=== PATIENT | female | born 1985 | race Hispanic/Latino ===

== ENCOUNTER 2017-02-24 09:16 | Inpatient (IN) | payer OTHER ==
[2017-02-24 09:51] VITALS: BMI 45.6
[2017-02-24] MEDS: Lactated Ringer's 1,000 ML IV SCH ×2 (10:15→15:45)
[2017-02-24 10:32] LABS: BASO % 0.4 % (0.0-2.0); EOS # 0.1 K/uL (0.0-0.7); EOS % 0.8 % (0.0-4.0); HEMATOCRIT 38.3 % (34.0-47.0); LYMPH # 1.6 K/uL (1.0-4.3); LYMPH % 17.9 % (20.0-40.0); MEAN CELL VOLUME 89.5 fl (81.0-99.0); MEAN CORPUSCULAR HEMOGLOBIN 30.1 pg (27.0-31.0); MEAN CORPUSCULAR HGB CONC 33.7 g/dL (33.0-37.0); MEAN PLATELET VOLUME 9.8 fl (7.2-11.7); MONO # 0.6 K/uL (0.0-0.8); MONO % 6.2 % (0.0-10.0); NEUT # 6.8 K/uL (1.8-7.0); NEUT % 74.7 % (50.0-75.0); NRBC % 0.1 % (0.0-0.0); RED CELL DISTRIBUTION WIDTH 14.4 % (11.5-14.5)
--- NOTE | 2017-02-24 11:34 | OBADHP ---
Datetime: 02/24/2017 11:30 Admit Comment, IP Provider: 31-year-old 001 at 37 weeks and 3 days gestational age transferred to the ED due to oligohydramnios on ultrasound today. Patient with a history of prior . Pat ient without complaints at this time. Patient denies any contractions, bleeding, leakage of fluids. P atient reports good movement. records reviewed. course unremarkable. Past medical history none Past surgical history 1 Medications vitamins No known drug allergies Obstetrical history full-term section times one Social history no tobacco, no alcohol, no drugs Physical exam: Refer to physical exam findings Assessment: 31-year-old 001 at 37 weeks 3 days gestational age with oligohydramnios and prior 1. heart tracing reassuring. Plan: Admit to L_D for delivery. Both maternal well-being and well being reassuring at this time. Extremities - PN: Normal Abdomen - PN: Normal Back - PN: Normal Lungs - PN: Normal Heart - PN: Normal Thyroid - PN: Normal HEENT - PN: Normal General - PN: Normal FHR - Baseline A Provider: 130s-140s Contraction Comments Provider: none IP Hx Assessment: The History has been Reviewed and is Current Vital Signs Provider: Reviewed; Within Normal Limits NICHD Variability Prov Fetus A: Moderate 6-25bpm IP Adm Impression: Term, intrauterine ; No Active Labor; Intact Membranes IP Admit Plan: Admit to unit; Initiate Section protocol Datetime: 02/07/2017 02:18 IP Chief Complaint Other: back pain, pelvic pressure Pelvic Type - PN: Adequate Breast - PN: Normal Neurologic - PN: Normal NICHD Accel Fetus A IP Provider: 15X15 Dilatation, Provider: closed Effacement, Provider: thick Station, Provider: -3 Genitourinary Exam: Normal DTRs - PN: Normal Datetime: 02/02/2017 18:34 Presentation-Admit: Vertex Comments, ACOG Physical Exam: Speculum exam no pooling cervix long closed posterior nitrazine negati ve Gestation - Est Wks by US: 34.0 Pool Provider: Negative IP Chief Complaint: Suspected ruptured membranes FHR Category Provider Fetus A: Category I NICHD Decel Fetus A IP Provider: None EGA AdmitDate IP: 34.2
[2017-02-24] MEDS ORDERED: ceFAZolin 2 GM in Sodium Chloride 0.9% 100 ML IVPB ONE (16:00)
[2017-02-24] MEDS ORDERED: ePHEDrine 50 mg/ml Inj ONE (16:35)
[2017-02-24] MEDS ORDERED: Morphine 1 mg/ml preservative-free Inj(Duramorph) ONE (16:36)
[2017-02-24] MEDS ORDERED: Phenylephrine 10 mg/ml Inj ONE (16:36)
--- NOTE | 2017-02-24 16:44 | OBHP ---
Datetime: 02/24/2017 11:30 IP Adm Impression: Term, intrauterine ; No Active Labor; Intact Membranes IP Admit Plan: Admit to unit; Initiate Section protocol Admit Comment, IP Provider: 31-year-old 001 at 37 weeks and 3 days gestational age transferred to the ED due to oligohydramnios on ultrasound today at [facility] Office NAN 2cm.. Patient with a history of prior . Patient without complaints at this time except mild dishcharge watery x 2-3 days. . Patient denies any contractions, bleeding, +FM. records reviewed. course unremar kable. Past medical history none Past surgical history 1 Medications vitamins No known drug allergies Obstetrical history full-term section times one Social history no tobacco, no alcohol, no drugs Physical exam: Refer to physical exam findings Assessment: 31-year-old 001 at 37 weeks 3 days gestational age with oligohydramnios and prior 1. heart tracing reassuring. Plan: Admit to L_D for delivery. Both maternal well-being and well being reassuring at this time. Admit for delivery, repeat cesearsean section npo, ivf anticiitocs or/ansetheia aware Extremities - PN: Normal Abdomen - PN: Normal Back - PN: Normal Lungs - PN: Normal Heart - PN: Normal Thyroid - PN: Normal HEENT - PN: Normal General - PN: Normal FHR - Baseline A Provider: 130s-140s Amniotic Fluid Color, Provider: Clear Membranes, Provider: Ruptured Contraction Comments Provider: none Pool Provider: Positive IP Hx Assessment: The History has been Reviewed and is Current EGA AdmitDate IP: 37.3 Vital Signs Provider: Reviewed; Within Normal Limits IP Indication for Induction: Oligohydramnios IP Chief Complaint: Suspected ruptured membranes NICHD Variability Prov Fetus A: Moderate 6-25bpm NICHD Decel Fetus A IP Provider: None Dilatation, Provider: 1-2 Effacement, Provider: 50 Station, Provider: -3 Datetime: 02/07/2017 02:18 NICHD Accel Fetus A IP Provider: [id number]
[2017-02-24] MEDS ORDERED: Oxycodone/Acetaminophen 5/325 mg Tab PO PRN ×4 (16:53→20:40)
[2017-02-24] MEDS ORDERED: Oxytocin 30 units/LR 500ML 500 ML IV SCH (18:30)
[2017-02-24] MEDS ORDERED: DiphenhydrAMINE 50 mg/ml Inj IVP PRN ×2 (18:37→20:40)
[2017-02-24] MEDS ORDERED: Simethicone 80 mg Chewtab PO SCH (22:00)
[2017-02-24] MEDS: Simethicone 80 mg Chewtab PO SCH (22:05)
[2017-02-25] MEDS: Simethicone 80 mg Chewtab PO SCH ×4 (04:13→22:02)
[2017-02-25] MEDS: Lactated Ringer's 1,000 ML IV SCH ×2 (04:15→05:39)
[2017-02-25 07:33] LABS: MEAN CELL VOLUME 90.9 fl (81.0-99.0); MEAN CORPUSCULAR HEMOGLOBIN 30.1 pg (27.0-31.0); MEAN CORPUSCULAR HGB CONC 33.2 g/dL (33.0-37.0); RED CELL DISTRIBUTION WIDTH 14.2 % (11.5-14.5); WHITE BLOOD COUNT 10.1 K/uL (4.8-10.8)
[2017-02-25 07:49] LABS: BLOOD UREA NITROGEN 7 mg/dl (7-17); CALCIUM 8.7 mg/dL (8.4-10.2); CARBON DIOXIDE 24 mmol/L (22-30); CHLORIDE 104 mmol/L (98-107); GFR AFRICAN-AMERICAN > 60; GLUCOSE,RANDOM 78 mg/dL (65-105); SODIUM 138 mmol/l (132-148)
--- NOTE | 2017-02-25 11:31 | OBDS ---
DELIVERY PERSONNEL Delivery Doctor: Mary Shen MD Refrigeration Mechanic: Elizabeth Kearns RN/ Анна Vicente RN Anesthesiologist: Magdy Castañeda MD MATERNAL INFORMATION Delivery Anesthesia: Spinal Medications in Delivery: pitocin and methergine 0.2mg IM 1740 Estimated Blood Loss (ml): 800 Placenta Cultured: Yes Maternal Complications: Other RN Comments: oligo Provider Comments: live female infant, weigh t5lb 11 ounces, apgars 9,9 normal uteurs, tubes ando varies, lower uterien segment thin. pediatiricn present at delivery LABOR SUMMARY EDC: 03/14/2017 00:00 No. Babies in Womb: 1 Attempted: No Labor Anesthesia: Intrathecal LABOR INFORMATION Reason for Induction: Not Applicable Oxytocin: N/A Group B Beta Strep: Negative Antibiotics # of Doses: cefazolin 2 g Antibiotics Time of Last Dose: @ 1710 Steroids Given: None Reason Steroids Not Administered: Not Applicable MEMBRANES Membranes Rupture Method: Artificial Rupture of Membranes: 02/24/2017 17:35 Length of Rupture (hrs): 0.00 Amniotic Fluid Color: Clear Amniotic Fluid Amount: Small Amniotic Fluid Odor: Normal STAGES OF LABOR Stage 3 hrs: 0 Stage 3 min: 2 VAGINAL DELIVERY Episiotomy: None Laceration Extension: N/A Laceration Type: None Laceration Repair: Not Applicable Sponge Count Correct: N/A Sharps Count Correct: N/A CSECTION DELIVERY Primary Indication: Other Other Primary Indication: oligo Secondary Indication: Repeat Elective CSection Urgency: Elective CSection Incidence: Repeat Labor: No Labor Elective: N/A CSection Incision: Lower Uterine Transverse BABY A INFORMATION Infant Delivery Date/Time: 02/24/2017 17:35 Method of Delivery: Born in Route : Yes : N/A Forceps: N/A Vacuum Extraction: N/A Shoulder Dystocia : No SHOULDER DYSTOCIA BABY A Delivery Date/Time: 02/24/2017 17:35 PRESENTATION/POSITION BABY A Presentation: Cephalic Cephalic Presentation: Vertex Vertex Position: Left Occipital Anterior Breech Presentation: N/A PLACENTA INFORMATION BABY A Placenta Delivery Time : 02/24/2017 17:37 Placenta Method of Delivery: Manual Removal Placenta Status: Delivered SCORES BABY A Heart Rate 1 min: >100 bpm Resp Effort 1 min: Good Cry Reflex Irritability 1 min: Cough or Sneeze or Pulls Away Muscle Tone 1 min: Active Motion Color 1 min: Body [place], Extremities Blue Resuscitation Effort 1 min: N/A SCORE 1 MIN: 9 Heart Rate 5 min: >100 bpm Resp Effort 5 min: Good Cry Reflex Irritability 5 min: Cough or Sneeze or Pulls Away Muscle Tone 5 min: Active Motion Color 5 min: Body [place], Extremities Blue Resuscitation Effort 5 min: N/A SCORE 5 MIN: 9 INFORMATION BABY A Gestational Age at Delivery: 37.3 Gestational Status: Term Infant Outcome : Liveborn Infant Condition : Stable Infant Sex: Female IDENTIFICATION/MEDS BABY A ID Band Number: [id number] ID Band Location: Left Leg; Left Arm WEIGHT/LENGTH BABY A Birthweight (gms): 2580 Weight (lb): 5 Infant Weight (oz): 11 CORD INFORMATION BABY A No. Cord Vessels: 3 Nuchal Cord : N/A Infant Cord pH Baby Venous: yes Cord Blood Taken: Yes Suction: Mouth; Nose ASSESSMENT BABY A Complications: None Infant Complications Other: none Physical Findings at Delivery: Within Normal Limits Respirations: Appears Normal Territory Supervisor/ALS Called : No Care By: Dr Duffy Transferred To: Remains with Mother
--- NOTE | 2017-02-25 15:13 | PCM.SURG1 ---
Surgeon's Initial Post Op Note - Surgeon's Notes Surgeon: Maryann Shen MD Checking Department Supervisor: Dov Hansen MD Type of Anesthesia: General LMA Pre-Operative Diagnosis: Previous Cesearen section with Premature rupture of membranes, oligohydramnios Operative Findings: live female in [facility], apgars 9,9 weight of 5lb 11 ounces. normal uterus, tubes and ovaries, dense fascial adhesions, fire medic present at delivery, thin lower utierine segement. Dr Dov Hansen was surgical assistan and essential in gaining etnry, retrction, exposure, holding the bladder blade, heping to deliver the infant , closing all the layers and obtaining hemostasis. Post-Operative Diagnosis: same as above Operation Performed: Repeat Low Transverse Cesearen section, Lysis of Adhesions Specimen/Specimens Removed: Placenta Estimated Blood Loss: EBL {In ML}: 800 Blood Products Given: N/A Drains Used: No Drains Post-Op Condition: Good Date of Surgery/Procedure: 02/24/17 Time of Surgery/Procedure: 17:00
--- NOTE | 2017-02-25 15:33 | CP.PCM.PN ---
Subjective - Date & Time of Evaluation Date of Evaluation: 02/25/17 Time of Evaluation: 12:00 - Subjective Subjective: pt seen and examined and denies any pain, pt ambuating, out of beod, voiding, not passing flatus, tolerating regular diet, denies any fevers, chills, nause, vomiting, ligtheadness, dizzyness, CP, SOB Objective - Vital Signs/Intake and Output Vital Signs (last 24 hours): VSS - Medications Medications: Current Medications Acetaminophen (Tylenol 325mg Tab) 650 mg PO Q4H PRN PRN Reason: Pain, Mild (1-3) Bisacodyl (Dulcolax) 10 mg PO DAILY PRN PRN Reason: Constipation Diphenhydramine HCl (Benadryl) 50 mg IVP Q6 PRN PRN Reason: Itching / Pruritus Docusate Sodium (Colace) 100 mg PO TID PRN PRN Reason: Constipation Docusate Sodium (Colace) 100 mg PO BID [facility] Oxytocin (Pitocin 20 Units In Lr) 1,000 mls @ 999 mls/hr IV .Q1H1M PRN; Protocol PRN Reason: Post Ceaserean Section Oxytocin (Pitocin 20 Units In Lr) 1,000 mls @ 125 mls/hr IV .Q8H DEBORAH PRN Reason: Protocol Lactated Ringer's (Lactated Ringer's) 1,000 mls @ 125 mls/hr IV .Q8H [facility] Last Admin: 02/25/17 05:39 Dose: Not Given Ibuprofen (Motrin Tab) 600 mg PO Q4H PRN PRN Reason: Pain, Mild (1-3) Metoclopramide HCl (Reglan) 10 mg IVP ONCE PRN PRN Reason: Nausea/Vomiting Ondansetron HCl (Zofran Inj) 4 mg IVP ONCE PRN PRN Reason: Nausea/Vomiting Ondansetron HCl (Zofran Inj) 4 mg IVP Q6 PRN PRN Reason: Nausea/Vomiting Last Admin: 02/25/17 01:00 Dose: 4 mg Oxycodone/Acetaminophen (Percocet 5/325 Mg Tab) 1 tab PO Q4 PRN PRN Reason: Pain, moderate (4-7) Stop: 02/27/17 16:54 Oxycodone/Acetaminophen (Percocet 5/325 Mg Tab) 2 tab PO Q4 PRN PRN Reason: Pain, severe (8-10) Stop: 02/27/17 16:54 Sennosides (Senokot Tab) 17.2 mg PO HS DEBORAH Simethicone (Mylicon Chew Tab) 80 mg PO Q6 [facility] Last Admin: 02/25/17 04:13 Dose: Not Given Zolpidem Tartrate (Ambien) 5 mg PO HS PRN PRN Reason: Insomnia - Labs Labs: 02/25/17 07:16 02/25/17 07:16 - Constitutional Appears: Well, Non-toxic - Head Exam Head Exam: ATRAUMATIC, NORMAL INSPECTION - Eye Exam Eye Exam: EOMI, Normal appearance Pupil Exam: NORMAL ACCOMODATION, PERRL - ENT Exam ENT Exam: Mucous Membranes Moist, Normal Exam - Neck Exam Neck Exam: Full ROM, Normal Inspection - Respiratory Exam Respiratory Exam: Clear to Ausculation Bilateral, NORMAL BREATHING PATTERN - Cardiovascular Exam Cardiovascular Exam: REGULAR RHYTHM, +S1, +S2 - GI/Abdominal Exam GI & Abdominal Exam: Soft, Normal Bowel Sounds Additional comments: non tender, no guarding, no rebound tenderness, no rigidity Icnson CD/I steri stirps intact Fundus: firm, blewo level of umbiucs mdoerate lochia, non fouls smelling - Extremities Exam Additional comments: negative víctor's sign, no calf tenderenss - Back Exam Back Exam: NORMAL INSPECTION - Psychiatric Exam Psychiatric exam: Normal Affect, Normal Mood - Skin Skin Exam: Dry Assessment and Plan (1) Delivered by delivery following previous delivery Assessment & Plan: 1/Pain Manamgnet; Percocet/motrin 2. Diet; Advance to regular as otelratge 3. D/c iv 4. encouarge ambuation, incentice spiromenter, breast feeding, abdoinla binder 5. cont current mangaent 6. bowel regiment: simethicone, colace Status: Acute
[2017-02-25] MEDS ORDERED: Bisacodyl 5mg EC Tab PO PRN ×2 (16:53)
--- NOTE | 2017-02-25 22:28 | OP ---
PROCEDURE DATE: 02/25/2017 SURGEON: Dr. Maryann Shen. SCANNING COORDINATOR: Dr. Dov Hansen. TYPE OF ANESTHESIA: General LMA. PREOPERATIVE DIAGNOSES: Previous section with premature rupture of membranes, oligohydramni os. OPERATIVE FINDINGS: Live female in SUNDAR position, Apgars 9 and 9, weight 5 pounds 11 ounces. Normal uterus, tubes, and ovaries, dense fascial adhesions. Director [place] present at delivery at lowe r uterine segment. Dr. Dov Hansen was retail loan originator assistant, essential in gaining entry, retraction, exposure, holding the bladder blade, helping to deliver the infant, closing all the layers and obtaining hemostasis. POSTOPERATIVE DIAGNOSES: Previous section with premature rupture of membranes, oligohydramn ios. OPERATION PERFORMED: Repeat low transverse section, lysis of adhesions. SPECIMEN REMOVED: Placenta. ESTIMATED BLOOD LOSS: 800 mL. BLOOD PRODUCTS: None. COMPLICATIONS: None. DESCRIPTION OF PROCEDURE: The patient was taken to the operating room where she was given spinal ane sthesia. Once this was found to be adequate, she was placed on the operating table in dorsal supine position. The patient was prepped and draped in the usual normal sterile fashion. The patient given preoperative prophylactic antibiotics. Pfannenstiel skin incision was made with scalpel and carried down to underlying fascia with the Bovie. Fascia was incised in the midline and extended laterally with Bovie. Superior aspect of the fascial incision was grasped with Bridger clamps, underlying rectu s muscle dissected off bluntly with the Bovie. Attention turned to the superior aspect. Incision wa s then grasped with Bridger clamps and the underlying rectus muscles were dissected off bluntly with u se of the Bovie. The rectus muscles were then bluntly in the midline carefully using 2 All is clamps. Incision was made with the scalpel superiorly until there was good visualization. The cl ear space was identified, entered bluntly and extended until there was good visualization of th e uterus and the lower uterine segment. Lower end of the Maik was then inserted and the lower douglas rine segment was incised in a transverse fashion. The uterine incision extended laterally with the b andage scissors. The surgeon's hand entered the uterine cavity and the 's head was delivered a traumatically followed by delivery of shoulders, followed with the body. Both oral and nasal passage s of the baby were bulb suctioned, umbilical cord was clamped and cut and baby was handed off to wait ing profile shaper operator. Cord blood and cord gases were collected and sent x 2. The placenta then delivere d manually. Uterus was exteriorized and cleared of all clots and debris. Uterine incision with 0 Vi cryl in running continuous locked fashion and second layer with the same suture was used to close the uterus in a running imbricated manner. There was good hemostasis of the uterine incision. There we re normal tubes and ovaries. The uterus was then returned to the abdomen and pericolic gutters were cleared of all clots and debris. The peritoneum was reapproximated and closed with 2-0 chromic in a running continuous fashion. The rectus was reapproximated and closed with 2-0 chromic in interrupted manner. The fascia was reapproximated and closed with 0 Vicryl in running continuous fashion. Subc utaneous space was closed with 2-0 plain in interrupted manner. Skin was reapproximated and closed w ith michael. At the end of the procedure, all needle, sponge, instrument counts were correct x 2. T he patient tolerated the procedure well and was transferred to the recovery room in stable condition. Maryann Shen MD cc: [id number] TT: 02/25/2017 16:02:52 barron
--- NOTE | 2017-02-26 00:27 | OBPPN ---
Datetime: 02/26/2017 00:23 PP Pain Prov: Within normal limits PP Nausea Prov: Denies PP Flatus Prov: No PP BM Prov: No PP Breasts Prov: Normal PP Heart Prov: Normal PP Lungs Prov: Normal PP Abdomen/Uterus Prov: Normal PP Lochia Prov: Normal PP Vulva/Perineum Prov: Normal PP CVA Tenderness Prov: Normal PP Extremities Prov: Normal PP C/S Incision Prov: Normal PP Progress Prov: Normal PP Impression Prov: Normal progression PP Plan Prov: Continue present management PP Progress Note Prov: delayed entry from 02/25 12Pm pt seen and examined wiht no complaints, ambuating, voiding, tolerating regular diet, not passing flatus, breast feeding, minimal vaginal bleeding, does have some oozing form incisoin VSS PE see above a/p s/p rltcxs pod #1 doing well -pain amanent -regular diet -bowel regimen -encouarge ambuatin, incenteive spirometer, breast feeding IP PP Procedures: None Vital Signs Provider PP: Reviewed; Within Normal Limits
--- NOTE | 2017-02-26 02:15 | OBPPN ---
Datetime: 02/26/2017 02:13 PP Pain Prov: Within normal limits PP Nausea Prov: Denies PP Flatus Prov: Yes PP BM Prov: No PP Breasts Prov: Normal PP Heart Prov: Normal PP Lungs Prov: Normal PP Abdomen/Uterus Prov: Normal PP Lochia Prov: Normal PP Vulva/Perineum Prov: Normal PP CVA Tenderness Prov: Normal PP Extremities Prov: Normal PP C/S Incision Prov: Normal PP Progress Prov: Normal PP Comments Phys Exam Prov: incsin: blood tinge on bandage, incison c/d/i, stpale in place, no drain age, skin intact fundus fimr, below level of umbilcs minimal locha, non foul smelling PP Impression Prov: Normal progression PP Plan Prov: Continue present management PP Progress Note Prov: pt seen and examined nad reports pain controlled with medication, ambuaitng, voiding, passing flatus, +breast feeding VSS PE see above a/p s/p RLTCS POD #2 doing well -cont current mangent -iniate d/c planning -RTO 1 week IP PP Procedures: None Vital Signs Provider PP: Reviewed; Within Normal Limits
[2017-02-26] MEDS: Simethicone 80 mg Chewtab PO SCH ×2 (04:21→10:10)
== END 2017-02-26 13:20 | disposition home or self-care (01) | DRG 766 ==
LOC: H.EROB2 09:16 → H.L&D 09:49 → H.OB/GYN 20:42
PROVIDERS: ADMIT Obstetrics & Gynecology; ATTEND Obstetrics & Gynecology
PROC: 4A1HXCZ Monitoring of Products of Conception, Cardiac Rate, External Approach (ICD-10-PCS; 2017-02-24)
PROC: 10D00Z1 Extraction of Products of Conception, Low, Open Approach (ICD-10-PCS; principal; 2017-02-25)
DX: O41.03X0 Oligohydramnios, third trimester, not applicable or unspecified (principal); Z37.0 Single live birth; O34.211 Maternal care for low transverse scar from previous cesarean delivery; Z3A.37 37 weeks gestation of pregnancy